=== PATIENT | male | born 1945 | race Caucasian/White ===

== ENCOUNTER 2019-03-15 07:47 | Day surgery (SDC) | payer MEDICARE ==
[~2019-03-15 07:47] MED LIST: CEFAZOLIN SODIUM 2 GM in DEXTROSE 5%-WATER 100 ML IV PRN
[2019-03-15 10:42] LABS: HEMATOCRIT 37.8 % (37.9-51.0); HEMOGLOBIN 12.2 g/dL (13.5-17.0); MEAN CORPUSCULAR HEMOGLOBIN 23.4 pg (27.0-33.4); MEAN CORPUSCULAR HGB CONC 32.2 g/dL (32.0-36.0); MEAN CORPUSCULAR VOLUME 73 fl (80-97); PLATELET COUNT 210 10^3/uL (150-450); RED CELL DISTRIBUTION WIDTH 17.9 % (11.5-14.0)
[2019-03-15] MEDS ORDERED: ALBUTEROL SULFATE 0.083% NEB 2.5 MG/3 ML AMPUL NEB ONE (10:45)
[2019-03-15 11:06] LABS: ANION GAP 9 (5-19); BLOOD UREA NITROGEN 16 mg/dL (7-20); CALCIUM 9.4 mg/dL (8.4-10.2); CARBON DIOXIDE 29 mmol/L (22-30); CHLORIDE 101 mmol/L (98-107); GLUCOSE 305 mg/dL (75-110); POTASSIUM 4.3 mmol/L (3.6-5.0)
--- NOTE | 2019-03-15 11:30 | RADIOLOGY REPORT (SQ) ---
EXAM DESCRIPTION: CHEST SINGLE VIEW COMPLETED DATE/TIME: 03/15/2019 10:13 am REASON FOR STUDY: PREOP COMPARISON: None. EXAM PARAMETERS: NUMBER OF VIEWS: One view. TECHNIQUE: Single frontal radiographic view of the chest acquired. RADIATION DOSE: NA LIMITATIONS: None. FINDINGS: LUNGS AND PLEURA: No opacities, masses or pneumothorax. No pleural effusion. MEDIASTINUM AND HILAR STRUCTURES: No masses. Contour normal. HEART AND VASCULAR STRUCTURES: Heart normal in size. Normal vasculature. BONES: Lower cervical fusion hardware HARDWARE: None in the chest. OTHER: No other significant finding. IMPRESSION: NO ACUTE RADIOGRAPHIC FINDING IN THE CHEST. TECHNICAL DOCUMENTATION: JOB ID: [id number] [email or web address]- All Rights Reserved Reading location - IP/workstation name: [email or web address]
[2019-03-15] MEDS: HYDROCODONE/ACETAMINOPHEN 10-325 MG TABLET ONE ×2 (12:00→17:15)
[2019-03-15] MEDS ORDERED: HYDROCODONE/ACETAMINOPHEN 10-325 MG TABLET PO ONE (12:15)
[2019-03-15] MEDS ORDERED: LIDOCAINE 2% INJ-PF (20 MG/ML) 2 ML AMPUL ONE (12:36)
[2019-03-15] MEDS ORDERED: DEXAMETHASONE SOD PHOSPHATE INJ 4 MG/1 ML VIAL ONE (12:36)
[2019-03-15] MEDS ORDERED: ONDANSETRON HCL INJ/PF 4 MG/2 ML SDV ONE (12:36)
[2019-03-15] MEDS ORDERED: MIDAZOLAM 2 MG/2 ML INJ ONE (13:22)
[2019-03-15] MEDS ORDERED: FENTANYL CITRATE INJ/PF 100 MCG/2 ML AMPUL ONE (13:22)
[2019-03-15] MEDS ORDERED: PROPOFOL INJ 200 MG/20 ML VIAL IV ONE (13:23)
[2019-03-15] MEDS ORDERED: BUPIVACAINE HCL 0.5 % INJ/PF 30 ML SDV ONE (13:24)
[2019-03-15] MEDS ORDERED: DIPHENHYDRAMINE HCL 50 MG/ML VIAL IV PRN (13:56)
[2019-03-15] MEDS ORDERED: MEPERIDINE HCL/PF INJ 25 MG/1 ML DISP.SYRIN IV PRN (13:56)
[2019-03-15] MEDS ORDERED: PROMETHAZINE HCL INJ 25 MG/1 ML VIAL IV PRN ×2 (13:56)
[2019-03-15] MEDS ORDERED: OXYCODONE-ACETAMINOPHEN 5-325 MG TABLET PO PRN ×2 (13:56)
[2019-03-15] MEDS ORDERED: FENTANYL CITRATE INJ/PF 100 MCG/2 ML AMPUL IV PRN ×3 (13:56)
[2019-03-15] MEDS ORDERED: HYDROMORPHONE HCL INJ/PF 2 MG/ML AMPULE ONE (15:14)
--- NOTE | 2019-03-15 16:16 | RADIOLOGY REPORT (SQ) ---
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 FLUOROSCOPY TIME: 13 seconds. 2 images saved to PACS. TECHNIQUE: Intra-operative images acquired during surgical procedure to evaluate progress. NUMBER OF IMAGES: 2 images. LIMITATIONS: None. FINDINGS: Images of the hand acquired during the procedure. IMPRESSION: IMAGE(S) OBTAINED DURING PROCEDURE. COMMENT: Quality ID [id number]: Final reports for procedures using fluoroscopy that document radiation exp osure indices, or exposure time and number of fluorographic images (if radiation exposure indices are not available) Please consult full operative report of the attending physician for description of the procedure. TECHNICAL DOCUMENTATION: JOB ID: [id number] [employer]- All Rights Reserved Reading location - IP/workstation name: [email or web address]
--- NOTE | 2019-03-15 16:16 | RADIOLOGY REPORT (SQ) ---
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 FLUOROSCOPY TIME: 13 seconds. 2 images saved to PACS. TECHNIQUE: Intra-operative images acquired during surgical procedure to evaluate progress. NUMBER OF IMAGES: 2 images. LIMITATIONS: None. FINDINGS: Images of the hand acquired during the procedure. IMPRESSION: IMAGE(S) OBTAINED DURING PROCEDURE. COMMENT: Quality ID [id number]: Final reports for procedures using fluoroscopy that document radiation exp osure indices, or exposure time and number of fluorographic images (if radiation exposure indices are not available) Please consult full operative report of the attending physician for description of the procedure. TECHNICAL DOCUMENTATION: JOB ID: [id number] [employer]- All Rights Reserved Reading location - IP/workstation name: [email or web address]
--- NOTE | 2019-03-15 16:21 | Operative Report ---
Operative Report DATE OF SURGERY: 03/15/19 PREOPERATIVE DIAGNOSIS: 1. 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 2. Left thumb hyperextension metacarpal phalangeal joint POSTOPERATIVE DIAGNOSIS: 1. 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 2. Left thumb hyperextension metacarpal phalangeal joint OPERATION: 1. Left thumb carpometacarpal arthroplasty. 2. Left partial trapezoidectomy. 3. Extensor pollicis brevis to abductor pollicis longus tendon transfer. 4. Left thumb metacarpal phalangeal capsulodesis (separate incision) SURGEON: JESSIE DELCID ANESTHESIA: GA COMPLICATIONS: None ESTIMATED BLOOD LOSS: Minimal PROCEDURE: Indications for procedure: Mr. Gilbert is a 73-year-old man who had previously un dergone CMC arthroplasty with LRTI. This surgery failed with loss of tension and subsidence of the base of the thumb metacarpal as well as hyperextension of the metacarpal phalangeal joint. Description of procedure: Following the induction of a general anesthetic and administration of 2 g of Ancef, the patient was positioned supine on the operating room table. All bony prominences were padded. The left upper extremity was sterilely prepped with ChloraPrep and draped in standard fashion. The arm was exsanguinated and the tourniquet inflated to 250 mmHg. Longitudinal incision was made overlying the base of the thumb metacarpal and carpometacarpal joint. A sharp incision was made through skin with blunt dissection to the subcutaneous tissue. Care was taken to identify and protect superficial branching nerves as well as the dorsal radial artery. Longitudinal incision was made at the base the metacarpal and over the carpal metacarpal joint. There were abundant osteophytes at the base of the metacarpal which were removed with an osteotome and rongeur. The scaphoid trapezoid joint was visualized. 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 Partial excision of the trapezoid at its articulation with the scaphoid was then performed. The wound was then packed with moistened gauze. This point we turned our attention to the capsulodesis of the metacarpal phalangeal joint. A separate incision was made on the volar aspect of the thumb. A Chao's incision was made with care taken to visualize and protect branches of the digital artery and nerve. The volar plate was elevated from the metacarpal neck. Guidewires for the Arthrex swivel lock DX suture anchors were placed into the metacarpal neck and base of the proximal phalanx. The position of these wires were checked under fluoroscopy. The wires were then overdrilled to the appropriate depth. Volar plate was grasped with suture tape and with the metacarpal phalangeal joint flexed the volar plate was advanced proximally to secure the tenodesis. Once the suture was docked with the anchor and the hole in the metacarpal the suture tape was then docked into the phalangeal hole completing the tenodesis. The wound was copiously irrigated and skin reapproximated with nylon suture. We then went back to secure the CMC arthroplasty. The CMC arthroplasty was secured with an Arthrex tight rope. Holes for the tight rope were performed via a 2 incision technique and 2 incision tight rope passing. Transverse hole was drilled at the base of the thumb metacarpal with the wire directed into a separate incision made over the base of the index metacarpal. A central hole in the index metacarpal was then separately drilled. The mini tight rope was passed from the thumb metacarpal to the index metacarpal. Proper reduction between the thumb and index metacarpal was performed and the tight rope secured. Image intensification was brought in to confirm that the tight rope placement was appropriate. There was full range of motion passively on the table with the thumb secured collinear with the base of the index metacarpal. The wound was copiously irrigated. The capsule over the carpometacarpal joint was reapp roximated with 3-0 Vicryl suture. Extensor pollicis brevis to abductor pollicis longus and base of metacarpal transfer was performed at this juncture. The extensor pollicis brevis was secured to the base of the metacarpal with sutures and was transected distally. This was done to provide a better abduction moment at the base of the metacarpal and to remove the deforming force causing hyperextension of the metacarpal phalangeal joint. The skin was then reapproximated with 3-0 nylon suture. A bulky sterile dressing and thumb spica splint was then applied. The patient tolerated procedure well without complication and was brought to recovery room in stable condition.
[2019-03-15] MEDS ORDERED: HYDROCODONE/ACETAMINOPHEN 10-325 MG TABLET ONE (17:17)
[2019-03-15 18:50] VITALS: BP 171/96
--- NOTE | 2019-03-16 08:47 | EKG REPORT ---
SEVERITY:- BORDERLINE ECG - SINUS RHYTHM BORDERLINE INFERIOR Q WAVES BORDERLINE T WAVE ABNORMALITIES : Confirmed by: Mela Marsh 16-Mar-2019 08:47:15
== END 2019-03-15 18:10 | disposition home or self-care (01) ==
LOC: OROUT 07:47
PROVIDERS: ATTEND Orthopaedic Surgery
DX: S63.042A Subluxation of carpometacarpal joint of left thumb, initial encounter (principal); S63.112A Subluxation of metacarpophalangeal joint of left thumb, initial encounter; X58.XXXA Exposure to other specified factors, initial encounter; M25.732 Osteophyte, left wrist; I10 Essential (primary) hypertension; E11.9 Type 2 diabetes mellitus without complications; Z79.899 Other long term (current) drug therapy; Z79.84 Long term (current) use of oral hypoglycemic drugs
CPT/HCPCS: 25447; 25310; 26516; 36415; 82962; 85027; 80048; 71045; 73140; 93005; 93010; 01830; C1713; J2250; J0690; J1100; J3010; J1170; J2405; J7060; J2704; A9270 ×2; J3490